=== PATIENT | male | born 1995 | race African-American/Black ===

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

== ENCOUNTER 2017-04-13 10:14 | Emergency (ER) | payer SELFPAY ==
[2017-04-13] MEDS ORDERED: IBUPROFEN 800 MG TABLET PO ONE (11:04)
--- NOTE | 2017-04-13 11:11 | ER Document Report ---
ED General - General Chief Complaint: Rib Pain Stated Complaint: RIB PAIN Time Seen by Provider: 04/13/17 10:42 Mode of Arrival: Ambulatory Information source: Patient Notes: 21-year-old male presents to ED for bilateral lateral rib pain 2 weeks. He states that one that it is hurting when he takes a deep breath. He denies any injuries or traumas. He states he does lift weights. TRAVEL OUTSIDE OF THE [place] IN LAST 30 DAYS: No - HPI Onset: Other - 2 weeks Onset/Duration: Gradual, Worse Quality of pain: Sharp Severity: Moderate Pain Level: 4 Associated symptoms: Other - Bilateral rib pain Exacerbated by: Movement, Deep breathing Relieved by: Denies Similar symptoms previously: Yes Recently seen / treated by doctor: No - Related Data Allergies/Adverse Reactions: milk [Milk] Allergy (Verified 11/16/14 08:24) Past Medical History - General Information source: Patient - Social History Smoking Status: Former Smoker Cigarette use (# per day): No Chew tobacco use (# tins/day): No Smoking Education Provided: No Frequency of alcohol use: None Drug Abuse: None Occupation: Construction also works at a [employer] Lives with: Friend Family History: Arthritis, Hyperlipidemia, Hypertension, Malignancy Patient has suicidal ideation: No Patient has homicidal ideation: No - Past Medical History Cardiac Medical History: Reports: None Pulmonary Medical History: Reports: Hx Asthma EENT Medical History: Reports: None Neurological Medical History: Reports: None Endocrine Medical History: Reports: None Renal/ Medical History: Reports: None Malignancy Medical History: Reports None GI Medical History: Reports: None Musculoskeltal Medical History: Reports None Skin Medical History: Reports None Psychiatric Medical History: Reports: None Traumatic Medical History: Reports: None Infectious Medical History: Reports: None Surgical Hx: Negative Past Surgical History: Reports: None - Immunizations Immunizations up to date: Yes Hx Diphtheria, Pertussis, Tetanus Vaccination: Yes Review of Systems - Review of Systems Constitutional: No symptoms reported EENT: No symptoms reported Cardiovascular: No symptoms reported Respiratory: Other - Bilateral lateral rib pain Gastrointestinal: No symptoms reported Genitourinary: No symptoms reported Male Genitourinary: No symptoms reported Musculoskeletal: No symptoms reported Skin: No symptoms reported Hematologic/Lymphatic: No symptoms reported Neurological/Psychological: No symptoms reported -: Yes All other systems reviewed and negative Physical Exam - Vital signs Vitals: Temp Pulse Resp BP Pulse Ox 98.3 F 81 15 158/84 H 97 04/13/17 10:20 04/13/17 10:20 04/13/17 10:20 04/13/17 10:20 04/13/17 10:20 Interpretation: Normal - General General appearance: Appears well, Alert - HEENT Head: Normocephalic, Atraumatic Eyes: Normal Pupils: PERRL - Respiratory Respiratory status: No respiratory distress Chest status: Tender - Bilateral lateral rib tenderness, Pain on movement, Pain with deep breathing Breath sounds: Normal Chest palpation: Normal - Cardiovascular Rhythm: Regular Heart sounds: Normal auscultation Murmur: No - Abdominal Inspection: Normal Distension: No distension Bowel sounds: Normal Tenderness: Nontender Organomegaly: No organomegaly - Back Back: Normal, Nontender - Extremities General upper extremity: Normal inspection, Nontender, Normal color, Normal ROM , Normal temperature General lower extremity: Normal inspection, Nontender, Normal color, Normal ROM , Normal temperature, Normal weight bearing. No: Marion's sign - Neurological Neuro grossly intact: Yes Cognition: Normal Orientation: AAOx4 Mirta Coma Scale Eye Opening: Spontaneous Mirta Coma Scale Verbal: Oriented Mirta Coma Scale Motor: Obeys Commands Mirta Coma Scale Total: 15 Speech: Normal Motor strength normal: LUE, RUE, LLE, RLE Sensory: Normal - Psychological Associated symptoms: Normal affect, Normal mood - Skin Skin Temperature: Warm Skin Moisture: Dry Skin Color: Normal Course - Re-evaluation Re-evalutation: 04/13/17 19:46 Discussed x-ray results with patient and written report given the patient before discharge. - Vital Signs Vital signs: Temp Pulse Resp BP Pulse Ox 98.1 F 80 16 147/83 H 99 04/13/17 12:39 04/13/17 12:39 04/13/17 12:39 04/13/17 12:39 04/13/17 12:39 - Diagnostic Test Radiology reviewed: Image reviewed, Reports reviewed Discharge - Discharge Clinical Impression: bilateral rib pain Condition: Stable Disposition: HOME, SELF-CARE Instructions: Use of Smcg-Uiw-Dvpuxzt Ibuprofen ([facility]), Family Physicians / Practices Additional Instructions: He was seen today for bilateral lateral rib pain. Denies any injury or fall. He states you have been lifting weights. Please decreased the amount of weight your lifting for the next week. Ibuprofen as anti-inflammatory and should help with this musculoskeletal pain. Show no fractured ribs and your lungs are clear and normal. I have given you a written report of the x-ray to follow-up with your primary doctor. USE OF TYLENOL (ACETAMINOPHEN): Acetaminophen may be taken for pain relief or fever control. It's much safer than aspirin, offering a wider range of "safe" dosages. It is safe during . Some brand names are Tylenol, Panadol, Datril, Anacin 3, Tempra, and Liquiprin. Acetaminophen can be repeated every four hours. The following are maximum recommended dosages: WEIGHT Dose Drops Elixir Chewable( 80mg) (LBS.) drprs=droppers tsp=teaspoon 6 40 mg 0.4 ml (1/2) 6-11 80 mg 0.8 ml (full) tsp 1 tab 12-16 120 mg 1 1/2 drprs 3/4 tsp 1 1/2 tabs 17-23 160 mg 2 drprs 1 tsp 2 tabs 24-30 240 mg 3 drprs 1 1/2 tsp 3 tabs 30-35 320 mg 2 tsp 4 tabs 36-41 360 mg 2 1/4 tsp 4 1/2 tabs 42-47 400 mg 2 1/2 tsp 5 tabs 48-53 480 mg 3 tsp 6 tabs 54-59 520 mg 3 1/4 tsp 6 1/2 tabs 60-64 560 mg 3 1/2 tsp 7 tabs 65-70 600 mg 3 3/4 tsp 7 1/2 tabs 71-76 640 mg 4 tsp 8 tabs 77-82 720 mg 4 1/2 tsp 9 tabs 83-88 800 mg 5 tsp 10 tabs >89 pounds or adults 650 mg to 900 mg Acetaminophen can be repeated every four hours. Maximum dose not to exceed 4000 mg a day. These maximum recommended dosages are slightly higher than the dosages written on the product container, but these dosages are very safe and below the toxic dosage for acetaminophen. ICE PACKS: Apply ice packs frequently against the painful area. Many different schedules are recommended, such as "20 minutes on, 20 minutes off" or "one hour ice, two hours rest." If you need to work, you may need to go longer between ice treatments. You should plan to have the area ice packed AT LEAST one fourth of the time. The ice should be applied over the wrap, tape, or splint, or over a layer of cloth -- not directly against the skin. Some ice bags have a built-in cloth and can be put directly on the skin. WARM PACKS: After approximately two days, apply gentle heat (such as a heating pad or hot water bottle) for about 20 to 30 minutes about every two hours -- at least four times daily. Warmth and elevation will help you make a more rapid recovery , and will ease the pain considerably. Do not use HOT heat, and never apply heat for longer than 30 minutes. The continuous heat can invisibly damage skin and muscles -- even when no burn is seen on the surface. Damaged muscles can make you MORE sore. FOLLOW-UP CARE: If you have been referred to a physician for follow-up care, call the physician s office for an appointment as you were instructed or within the next two days. If you experience worsening or a significant change in your symptoms, notify the physician immediately or return to the Emergency Department at any time for re-evaluation. Prescriptions: Ibuprofen 800 mg PO Q8HP PRN #20 tablet PRN Reason: Forms: Elevated Blood Pressure, Return to Work
--- NOTE | 2017-04-13 11:52 | RADIOLOGY REPORT (SQ) ---
EXAM DESCRIPTION: RIBS BILATERAL W/PA CXR COMPLETED DATE/TIME: 04/13/2017 11:28 am REASON FOR STUDY: rib pain bilateral COMPARISON: 10/11/2016 two-view chest TECHNIQUE: Frontal view of the chest and additional views of the bilateral ribs acquired. NUMBER OF VIEWS: PA chest, 3 rib detail films LIMITATIONS: None. FINDINGS: FRONTAL CXR: No pneumothorax. No pleural effusion. No atelectasis or infiltrates. Cardi ac silhouette size, chelsie unremarkable. RIBS: No displaced rib fractures. No lytic or blastic bony lesions. OTHER: No other significant finding. IMPRESSION: NO PNEUMOTHORAX. NO DISPLACED RIB FRACTURES. COMMENT: SITE OF TRAUMA/COMPLAINT MARKED/STAMP COMPLETED: Yes TECHNICAL DOCUMENTATION: JOB ID: [id number] [employer]- All Rights Reserved
[2017-04-13 12:40] VITALS: BP 147/83
== END 2017-04-13 12:39 | disposition home or self-care (01) ==
LOC: ER 10:14
DX: R07.81 Pleurodynia (principal); Z87.891 Personal history of nicotine dependence
CPT/HCPCS: 71111; 99283

== ENCOUNTER 2019-05-24 08:08 | Emergency (ER) | payer OTHER ==
[2019-05-24 08:12] VITALS: BP 142/77
[2019-05-24] MEDS ORDERED: DEXAMETHASONE 4 MG TABLET PO ONE (09:27)
[2019-05-24] MEDS ORDERED: CETIRIZINE 10 MG TABLET PO ONE (09:27)
--- NOTE | 2019-05-24 09:33 | ER Document Report ---
HPI - HPI Time Seen by Provider: 05/24/19 09:13 Pain Level: 1 Context: Patient is a 24-year-old male who presents emergency department with a chief complaint of rash. 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 Patient states the rash has not been red but just little tiny bumps on his cheeks. Patient states that it does not itch. Patient reports if he does rub the rash it does hurt. Patient states there is no eye involvement or swelling. Patient denies difficulty breathing or swallowing. Patient denies fever. Patient states he has not taken anything for this. Patient states he was concerned as it was on his face and he did not want to get worse and into his eyes. Past Medical History - General Information source: Patient - Social History Smoking Status: Unknown if Ever Smoked Lives with: Family Family History: Arthritis, Hyperlipidemia, Hypertension, Malignancy - Past Medical History Cardiac Medical History: Reports: None Pulmonary Medical History: Reports: Hx Asthma EENT Medical History: Reports: None Neurological Medical History: Reports: None Endocrine Medical History: Reports: None Renal/ Medical History: Reports: None. Denies: Hx Peritoneal Dialysis Malignancy Medical History: Reports None GI Medical History: Reports: None Musculoskeletal Medical History: Reports None Skin Medical History: Reports None Psychiatric Medical History: Reports: None Traumatic Medical History: Reports: None Infectious Medical History: Reports: None Surgical Hx: Negative - Immunizations Immunizations up to date: Yes Hx Diphtheria, Pertussis, Tetanus Vaccination: Yes Vertical Provider Document - CONSTITUTIONAL Agree With Documented VS: Yes Exam Limitations: No Limitations General Appearance: No Apparent Distress - INFECTION CONTROL TRAVEL OUTSIDE OF THE [place] IN LAST 30 DAYS: No - HEENT HEENT: Atraumatic, Normocephalic, PERRLA - NECK Neck: Normal Inspection - RESPIRATORY Respiratory: Breath Sounds Normal, No Respiratory Distress - CARDIOVASCULAR Cardiovascular: Regular Rate, Regular Rhythm - GI/ABDOMEN Gastrointestinal: Abdomen Soft, Abdomen Non-Tender, Normal Bowel Sounds - NEURO Level of Consciousness: Awake, Alert, Appropriate - DERM Notes: Small tiny raised pustules noted to bilateral cheeks. There is no redness, ecchymosis or edema noted. There is no swelling to the eyes. There does not appear to be any surrounding cellulitis or infection. Course - Re-evaluation Re-evalutation: 05/24/19 09:33 We will treat the patient with - Vital Signs Vital signs: Temp Pulse Resp BP Pulse Ox 97.7 F 68 16 142/77 H 99 05/24/19 08:11 05/24/19 08:11 05/24/19 08:11 05/24/19 08:11 05/24/19 08:11 Discharge - Discharge Clinical Impression: Rash, Skin irritation Condition: Stable Disposition: HOME, SELF-CARE Additional Instructions: Today he was seen in the emergency department for a rash to bilateral cheeks. You have reported that a few weeks ago while at work he did come in contact with some sort of chemical. We have decided to treat you with oral steroids as well as Zyrtec which is an antihistamine. This should help with the discomfort and rash. Please monitor for signs and symptoms of worsening such as redness, eye swelling, bleeding, or any other concerning signs or symptoms. If the rash ever does come in contact with the eye please seek care immediately. Please try to avoid the irritants at work. Please continue to wear gloves but do not wipe your face with the gloves while you are using them. Prescriptions: Cetirizine HCl [Zyrtec 10 mg Tablet] 1 tab PO DAILY #10 tablet Referrals: [facility] [Provider Group] - Follow up as needed
== END 2019-05-24 09:41 | disposition home or self-care (01) ==
LOC: ER 08:08
DX: R21 Rash and other nonspecific skin eruption (principal); L98.9 Disorder of the skin and subcutaneous tissue, unspecified; J45.909 Unspecified asthma, uncomplicated
CPT/HCPCS: 99282

== ENCOUNTER 2019-10-01 04:59 | Emergency (ER) | payer OTHER, BC ==
[2019-10-01 08:35] VITALS: BP 136/75
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
== END 2019-10-01 08:30 | disposition home or self-care (01) ==
LOC: ER 04:59
DX: S16.1XXA Strain of muscle, fascia and tendon at neck level, initial encounter (principal); S39.012A Strain of muscle, fascia and tendon of lower back, initial encounter; V49.40XA Driver injured in collision with unspecified motor vehicles in traffic accident, initial encounter; J45.909 Unspecified asthma, uncomplicated; Z87.891 Personal history of nicotine dependence
CPT/HCPCS: 99283

== ENCOUNTER 2019-10-03 18:16 | Emergency (ER) | payer OTHER ==
[2019-10-03] MEDS ORDERED: KETOROLAC TROMETHAMINE INJ/PF 30 MG/1 ML SDV IM ONE (20:26)
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
[2019-10-04 00:47] VITALS: BP 135/85
== END 2019-10-04 00:47 | disposition home or self-care (01) ==
LOC: ER 18:16
DX: S39.012D Strain of muscle, fascia and tendon of lower back, subsequent encounter (principal); S16.1XXD Strain of muscle, fascia and tendon at neck level, subsequent encounter; V87.7XXD Person injured in collision between other specified motor vehicles (traffic), subsequent encounter
CPT/HCPCS: 99283; 96372; 72110; 72070; J1885